=== PATIENT | male | born 1945 | race Native Hawaiian/Other Pacific Islander ===

== ENCOUNTER 2016-10-15 19:57 | Emergency (ER) | payer OTHER ==
[~2016-10-15] VITALS: Ht 167.6 cm; Wt 62.6 kg
[~2016-10-15 19:57] MED LIST: CLONAZEP ODT2 MG PO; CLONIDINE0.1 MG PO; LISI20TA31 PO; LOPRESSOR100 MG PO; PANT40TA PO; TAMS0.4C PO
[2016-10-15 20:54] VITALS: BP 146/95; TEMP 98.1
== END 2016-10-15 21:00 | disposition home or self-care (01) ==
LOC: ED 19:57
DX: R22.1 Localized swelling, mass and lump, neck (principal); I10 Essential (primary) hypertension; T43.595A Adverse effect of other antipsychotics and neuroleptics, initial encounter; Y92.89 Other specified places as the place of occurrence of the external cause
CPT/HCPCS: 99281

== ENCOUNTER 2016-12-19 17:05 | Emergency (ER) | payer OTHER ==
[~2016-12-19] VITALS: Ht 167.6 cm; Wt 63.5 kg
[2016-12-19 19:48] LABS: PLATELET COUNT 272 K/uL (142-355)
[2016-12-19 20:02] LABS: POTASSIUM 2.5 mmol/L (3.6-5.2)
[2016-12-19 22:15] VITALS: BP 106/64; TEMP 98.3
== END 2016-12-19 22:15 | disposition home or self-care (01) ==
LOC: ED 17:05
PROVIDERS: Specialist
DX: D72.828 Other elevated white blood cell count (principal); E87.6 Hypokalemia
CPT/HCPCS: 80053; 85027; 85651; 87880; 96372; 99283; J0696

== ENCOUNTER 2017-04-17 09:47 | Outpatient (CLI) | payer OTHER | END 2017-04-17 23:57 | disposition home or self-care (01) | LOC: NM 09:47 | DX: R10.11 Right upper quadrant pain (principal) | CPT/HCPCS: A9537 ==

== ENCOUNTER 2018-07-03 13:35 | Outpatient (CLI) | payer OTHER ==
[~2018-07-03] VITALS: Ht 167.6 cm; Wt 63.5 kg
[2018-07-03 13:40] VITALS: BP 196/105; TEMP 98.6
[2018-07-03 16:37] VITALS: BP 212/111; TEMP 97.9
== END 2018-07-03 23:22 | disposition home or self-care (01) ==
LOC: INF 13:35
DX: A08.8 Other specified intestinal infections (principal); E86.0 Dehydration
CPT/HCPCS: 96360; 96361

== ENCOUNTER → 2018-08-31 16:41 | Outpatient (CLI) | payer OTHER | END | disposition home or self-care (01) | LOC: AMB 16:41 ==